=== PATIENT | male | born 1970 | race Two or more races ===

== ENCOUNTER 2017-11-04 19:34 | Emergency (ER) | payer MEDICAID ==
[~2017-11-04] VITALS: Ht 182.9 cm; Wt 90.7 kg
[2017-11-04 19:46] VITALS: BP 133/92
== END 2017-11-04 20:40 | disposition left against medical advice (07) ==
LOC: ER 19:34
DX: S01.81XA Laceration without foreign body of other part of head, initial encounter (principal); Z53.21 Procedure and treatment not carried out due to patient leaving prior to being seen by health care provider; W31.9XXA Contact with unspecified machinery, initial encounter; Y93.89 Activity, other specified; Y99.8 Other external cause status; Y92.9 Unspecified place or not applicable